=== PATIENT | male | born 1950 | race Caucasian/White ===

== ENCOUNTER 2018-09-21 11:40 | Day surgery (SDC) | payer MEDICARE, OTHER ==
[~2018-09-21 11:40] MED LIST: Lactated Ringers 1,000 ML IV SCH; Propofol 200 MG/20 ML SDV ONE; Sodium Chloride 0.9% 10 ML Syringe FLUSH PRN
--- NOTE | 2018-09-21 12:39 | PCM.PN ---
- General Info Date of Service: 09/21/18 - Review of Systems Systems Review Comment:: 68-year-old male here for colonoscopy. His last colonoscopy was a few years ago. He has a history of colon polyps even requiring a resection of the right side of his colon for polyps in the past. He denies any recent change in bowel pattern. I discussed the proposed colonoscopy with the patient. Risks such as but not limited to bleeding and GI injury reviewed. He appears to understand and agrees to proceed. - Patient Data Vitals - Most Recent: Last Vital Signs Temp 98.4 F 09/21/18 12:12 Pulse 72 09/21/18 12:12 Resp 20 09/21/18 12:12 BP Pulse Ox 100 09/21/18 12:12 Weight - Most Recent: 97.069 kg Med Orders - Current: Current Medications Lactated Ringer's (Ringers, Lactated) 1,000 mls @ 125 mls/hr IV ASDIRECTED KEY Last Admin: 09/21/18 11:59 Dose: 125 mls/hr Sodium Chloride (Saline Flush) 10 ml FLUSH ASDIRECTED PRN PRN Reason: Keep Vein Open Discontinued Medications Propofol (Diprivan 20 Ml) Confirm Administered Dose 200 mg .ROUTE .STK-MED ONE Stop: 09/21/18 08:43 - Problem List Review Problem List Initiated/Reviewed/Updated: Yes - Assessment Assessment:: history of colon polyps - Plan Plan:: colonoscopy
[2018-09-21] MEDS ORDERED: Propofol 200 MG/20 ML SDV ONE ×2 (13:06→13:31)
--- NOTE | 2018-09-21 13:41 | PCM.OPNOTE ---
- General Post-Op/Procedure Note Date of Surgery/Procedure: 09/21/18 Operative Procedure(s): Colonoscopy with Polypectomy and polyp fulgaration Findings: Multiple colon polyps Prior right colectomy with normal anastomosis Pre Op Diagnosis: history of colon polyps Post-Op Diagnosis: colon polyps Anesthesia Technique: MAC Primary Surgeon: Nicholas Sorensen Pathology: Transverse colon polyp EBL in mLs: 0 Complications: None Condition: Good
--- NOTE | 2018-09-21 18:14 | OR ---
Date of Procedure: 09/21/2018 PREOPERATIVE DIAGNOSIS: History of colon polyps. POSTOPERATIVE DIAGNOSIS: Colon polyps. OPERATION PERFORMED: Colonoscopy with polypectomy and polyp fulguration. INDICATIONS FOR SURGERY: This 68-year-old male has a history of colon polyps and even underwent a right colectomy to treat large colon polyps in the past. He comes today for surveillance colonoscopy. FINDINGS: Two polyps were noted on today's exam. There is a 9 mm semi- pedunculated polyp noted in the transverse colon and a 3 mm sessile polyp noted in the sigmoid colon. The remainder of the colon appears normal. The patient's right colon anastomosis also appears normal. DESCRIPTION OF PROCEDURE: The patient was taken to the operating room. He was given intravenous sedation and with him in the left lateral decubitus position, digital rectal exam was performed showing no rectal masses. The Olympus colonoscope was inserted into the rectum. Retroflexed examination of the rectal canal was performed. The scope was then carefully advanced through the entire length of the remaining colon to the right colon anastomosis. This area was carefully examined and appeared normal. The distal small bowel was examined and also appeared normal. The scope was then slowly withdrawn sequentially re- examining the colonic segments. In the transverse colon, the above-described polyp was identified. It was removed with a cautery snare and retrieved into a polyp trap. In the descending colon, the small polyp is fulgurated and completely destroyed with cautery. Examination was then completed and no sign of any complication. The scope was removed, and the patient was taken from the operating room in satisfactory condition. ESTIMATED BLOOD LOSS: Zero. COMPLICATIONS: None. PROGNOSIS: Good. DUANE Sorensen MD /[id number]
== END 2018-09-21 14:25 | disposition home or self-care (01) ==
LOC: LL.SDS 11:40
PROVIDERS: ATTEND Surgery
DX: Z12.11 Encounter for screening for malignant neoplasm of colon (principal); D12.3 Benign neoplasm of transverse colon; K63.5 Polyp of colon; I10 Essential (primary) hypertension; E78.5 Hyperlipidemia, unspecified; N40.1 Benign prostatic hyperplasia with lower urinary tract symptoms; R35.0 Frequency of micturition; M50.11 Cervical disc disorder with radiculopathy, high cervical region; Z90.49 Acquired absence of other specified parts of digestive tract; Z86.010 Personal history of colon polyps; Z79.899 Other long term (current) drug therapy
CPT/HCPCS: 00812; 45385; 45388; J2704; J7120; 88305